=== PATIENT | female | born 1990 | race Caucasian/White ===

== ENCOUNTER 2016-11-14 08:49 | Emergency (ER) | payer OTHER, MEDICAID ==
--- NOTE | 2016-11-14 09:35 | EDPHY ---
H & P Stated Complaint: sore throat runny nose cough for 5 days HPI/ROS: Chief complaint: Cold symptoms History of present illness: 26-year-old female presents to the emergency department for cold symptoms. Patient reports the onset of symptoms over the last 5 days. She reports tactile fevers, runny nose, nasal congestion, sore throat and cough. She denies precipitating factors. Denies alleviating factors. Denies other associated signs or symptoms including no trouble breathing and no rash. - Personal History LMP (Females 10-55): Irregular Current Tetanus/Diphtheria Vaccine: Yes Current Tetanus Diphtheria and Acellular Pertussis (TDAP): Yes Tetanus Vaccine Date: < 10 years - Medical/Surgical History Hx Asthma: No Hx Chronic Respiratory Disease: No Hx Diabetes: No Hx Cardiac Disease: No Hx Renal Disease: No Hx Cirrhosis: No Hx Alcoholism: No Hx HIV/AIDS: No Hx Splenectomy or Spleen Trauma: No Other PMH: depression/anxiety - Social History Smoking Status: Current some day smoker - Physical Exam Exam: General Appearance: Alert, nontoxic. Eyes: Pupils equal and round no injection. ENT: Tympanic membranes, external auditory canals, external ears and surrounding soft tissue including over the mastoids are unremarkable. Nasopharynx is not injected. There is no rhinorrhea. Oropharynx is injected. There is mild edema. There is no exudate. There is no asymmetry. The uvula is midline. No elevation of the tongue. There is no hoarseness, no drooling, no trismus, no stridor. Respiratory: Chest is nontender, lungs are clear to auscultation. Cardiac: regular rate and rhythm. Musculoskeletal: Neck is supple and nontender. Extremities have full range of motion and are nontender. Skin: No rashes or lesions. Neurological: Alert and oriented x4. No meningismus. Constitutional: Initial Vital Signs Temperature (C) 36.6 C 11/14/16 08:51 Heart Rate 108 H 11/14/16 08:51 Respiratory Rate 16 11/14/16 08:51 Blood Pressure 136/90 H 11/14/16 08:51 O2 Sat (%) 97 11/14/16 08:51 O2 Delivery Mode Room Air Allergies/Adverse Reactions: iodine [Iodine] Allergy (Intermediate, Verified 04/28/16 11:17) Home Medications: Medication Instructions Recorded Busjonn (*) 04/28/16 Lexapro 04/28/16 Codeine Phosphate/Guaifenesin 10 ml PO Q6 #120 ml 11/14/16 [Codeine-Guaifen 10-100 mg/5 ml] Medical Decision Making ED Course/Re-evaluation: Patient seen under the supervision of my secondary supervising physician Dr. Komal Shin. Patient presents to the emergency department for cold symptoms. Patient is nontoxic. Afebrile and vital signs are stable. Physical exam is consistent with a pharyngitis. Strep swab is negative. I do not believe antibiotics are warranted at this time. Patient will be discharged home. Home care is discussed. Return precautions are given. Patient voiced understanding and agreement with plan. Differential Diagnosis: Included but not limited to pharyngitis, strep pharyngitis, tonsillitis, abscess formation, bronchitis, pneumonia, influenza - Data Points Laboratory Results: 11/14/16 11/14/16 Unknown 09:05 Group A Strep Screen NEGATIVE (NEGATIVE) Group A Strep DNA NEGATIVE (NEGATIVE) Departure - Departure Disposition: Home, Routine, Self-Care Clinical Impression: Acute pharyngitis Qualifiers: Pharyngitis/tonsillitis etiology: unspecified etiology Qualified Code(s): J02.9 - Acute pharyngitis, unspecified Condition: Good Instructions: Pharyngitis (ED) Additional Instructions: Follow-up with your primary care doctor for recheck Use ibuprofen 600 mg 3 times a day for the next 2-3 days If symptoms worsen or new symptoms develop return to the emergency room for recheck Referrals: UNKNOWN,BECKY [Other] - As per Instructions [facility],. [Clinic] - As per Instructions Stand Alone Forms: Work Excuse Prescriptions: Codeine Phosphate/Guaifenesin [Codeine-Guaifen 10-100 mg/5 ml] 10 ml PO Q6 #120 ml
[2016-11-14 10:22] VITALS: BP 143/108; PULSE 76; RESP 18; TEMP 98.1; O2SAT 96
== END 2016-11-14 10:21 | disposition home or self-care (01) ==
DX: J02.9 Acute pharyngitis, unspecified (principal); F17.200 Nicotine dependence, unspecified, uncomplicated

== ENCOUNTER 2017-01-23 18:38 | Emergency (ER) | payer OTHER, MEDICAID ==
[2017-01-23 19:10] VITALS: BP 113/76; PULSE 74; RESP 16; TEMP 98.2; O2SAT 98
--- NOTE | 2017-01-23 20:19 | EDPHY ---
H & P Stated Complaint: rash/possible ringworm to l neck x 2 days Source: Patient Exam Limitations: No limitations - Personal History LMP (Females 10-55): Unknown Current Tetanus/Diphtheria Vaccine: Yes Tetanus Vaccine Date: < 10 years - Medical/Surgical History Hx Asthma: No Hx Chronic Respiratory Disease: No Hx Diabetes: No Hx Cardiac Disease: No Hx Renal Disease: No Hx Cirrhosis: No Hx Alcoholism: No Hx HIV/AIDS: No Hx Splenectomy or Spleen Trauma: No Other PMH: depression/anxiety - Social History Smoking Status: Current some day smoker HPI/ROS: CHIEF COMPLAINT: Rash, possible ringworm HISTORY OF PRESENT ILLNESS: Patient complains of 2 days history of rash on the left side of her neck. She is worried that is ringworm as she has a family member and cat with ringworm. She has no systemic complaints. The rash is minimally pruritic. No fever or chills. No involvement of the face. No modifying factors. No other associated complaints. She has not attempted to treat this with anything yet. REVIEW OF SYSTEMS: Ten systems reviewed and are negative unless otherwise noted in the HPI PAST MEDICAL HISTORY: Denies any medical history SOCIAL HISTORY: Nonsmoker. Lives here in [place]. Recently traveled to [place] FAMILY HISTORY: Noncontributory EXAMINATION General Appearance: Alert, no distress Head: normocephalic, atraumatic Eyes: Pupils equal and round, no conjunctival pallor or injection ENT, Mouth: Mucous membranes moist. Airway patent Neck: Supple nontender. There is a small, less than 2 cm area of tinea corporis the left side of the neck. No surrounding erythema, fluctuance or induration. Respiratory: No retractions or distress Cardiovascular: Regular rate. Pulses intact distally symmetrically Neurological: A&O, nonfocal, normal gait Skin: Warm and dry. Tinea corporis to the left side of the neck as described above. No petechiae or purpura. Extremities: Nontender, no pedal edema Psychiatric: Mood and affect normal DIFFERENTIAL DIAGNOSES: Including but not limited to tinea corpora, fungal infection, rash, dermatitis MDM: 8:15 p.m. Tinea corporis till left side of the neck. No involvement of the face. No involvement of the genitalia feet. Topical cream/ointment will be prescribed. Apply as discussed. Follow up with primary care physician. Return here for any worsening symptoms. Follow up with design verification engineer for the son who was not evaluated here as a patient. SUPERVISION: This patient was independently evaluated without direct examination by the attending physician. Case was discussed with attending physician. (Rakan Rushing) Constitutional: Initial Vital Signs Temperature (C) 98.2 F 01/23/17 19:07 Heart Rate 74 01/23/17 19:07 Respiratory Rate 16 01/23/17 19:07 Blood Pressure 113/76 01/23/17 19:07 O2 Sat (%) 98 01/23/17 19:07 O2 Delivery Mode Room Air Allergies/Adverse Reactions: iodine [Iodine] Allergy (Intermediate, Verified 01/23/17 19:08) Home Medications: Medication Instructions Recorded Buspar (*) 04/28/16 Lexapro 04/28/16 Clotrimazole 1% [Lotrimin 1%] 1 thiago TP BID #1 tube 01/23/17 Medical Decision Making ED Course/Re-evaluation: I did not see this patient while she was in the emergency department. However her care was discussed with the PA while the patient was in the department. I agree with treatment plan and management (Sanchez Zamora) Departure - Departure Disposition: Home, Routine, Self-Care Clinical Impression: Tinea corporis Condition: Good Instructions: Tinea Corporis (ED) Additional Instructions: 1. Ointment as prescribed for 10-14 days 2. Follow up primary care physician Referrals: NONE *PRIMARY CARE P,. [Primary Care Provider] - As per Instructions Carla Woodall MD [Medical Doctor] - As per Instructions Prescriptions: Clotrimazole 1% [Lotrimin 1%] 1 thiago TP BID #1 tube
== END 2017-01-23 20:27 | disposition home or self-care (01) ==
DX: B35.4 Tinea corporis (principal); F17.200 Nicotine dependence, unspecified, uncomplicated

== ENCOUNTER 2017-07-22 08:13 | Emergency (ER) | payer OTHER, MEDICAID ==
[2017-07-22 08:23] VITALS: BP 139/96; PULSE 92; RESP 18; TEMP 98.4; O2SAT 98
--- NOTE | 2017-07-22 08:55 | EDPHY ---
H & P Time Seen by Provider: 07/22/17 08:33 HPI/ROS: CHIEF COMPLAINT: Sore throat, sinus pressure, cough HISTORY OF PRESENT ILLNESS: Patient is a 26-year-old female presents emergency department multiple complaints. She states that 1 week ago she developed bilateral ear pain. Her right ear is worse than the left. She has had worsening sore throat. This is primarily on the right side. She also notes right anterior lymphadenopathy on her neck. She has had intermittent sweats. She has not measured her temperature. She denies nausea or vomiting. No abdominal pain. Patient has a mild cough but this is improving. She has no shortness of breath. No leg pain or swelling. REVIEW OF SYSTEMS: My complete review of systems is negative except as mentioned in the HPI. Past Medical/Surgical History: Includes depression, anxiety Past surgical history: Noncontributory Social history: The patient smokes. Smoking Status: Current some day smoker Physical Exam: Vitals noted GENERAL: Well-appearing, in no acute distress, alert. HEENT: Eyes normal to inspection, no signs of dehydration. Patient's TMs are negative bilaterally. Patient has an erythematous pharynx was small white lesions. The uvula is midline. There is no asymmetry or mass visible. Mild maxillary sinus tenderness palpation NECK: No thyromegaly, right anterior lymphadenopathy, supple. RESPIRATORY: Clear to auscultation bilaterally, no rales, rhonchi or wheezing. CVS: Regular rate and rhythm, no rubs, murmurs, or gallops. ABDOMEN: Soft, nontender, nondistended, no organomegaly. BACK: Normal to inspection, no CVA tenderness. SKIN: Normal color, no rash, warm, dry. No pallor. EXTREMITIES: No pedal edema, no calf tenderness, no Homans sign or cords, no joint swelling. NEURO/PSYCH: Alert and oriented x3, normal mood and affect, normal motor sensory exam. No obvious cranial nerve deficit. Constitutional: Initial Vital Signs Temperature (C) 36.9 C 07/22/17 08:17 Heart Rate 92 07/22/17 08:17 Respiratory Rate 18 07/22/17 08:17 Blood Pressure 139/96 H 07/22/17 08:17 O2 Sat (%) 98 07/22/17 08:17 O2 Delivery Mode Room Air Allergies/Adverse Reactions: No Known Allergies Allergy (Unverified 07/22/17 08:58) Home Medications: Medication Instructions Recorded Amoxicillin/Clavulanate Pot 875 mg PO BID 10 Days tab 07/22/17 [Augmentin 875 mg tab] Escitalopram Oxalate [Lexapro] 10 mg PO 07/22/17 QUEtiapine FUMARATE [Seroquel 25 25 mg PO DAILY 07/22/17 mg (*)] busPIRone [Buspar (*)] 5 mg PO 07/22/17 Medical Decision Making ED Course/Re-evaluation: In the emergency department I discussed possible etiologies with the patient. I answered all her questions. Patient will be treated with Augmentin. This will cover for both pharyngitis as well as sinusitis. I explained this to the patient. I answered all her questions. She is given warnings prior to leaving. Differential Diagnosis: My differential includes but is not limited to sinusitis, pharyngitis, strep pharyngitis, peritonsillar abscess, retropharyngeal abscess, mononucleosis, bacteremia, sepsis Departure - Departure Disposition: Home, Routine, Self-Care Clinical Impression: Sinusitis Qualifiers: Sinusitis location: maxillary Chronicity: acute Recurrence: non-recurrent Qualified Code(s): J01.00 - Acute maxillary sinusitis, unspecified Pharyngitis Qualifiers: Pharyngitis/tonsillitis etiology: unspecified etiology Qualified Code(s): J02.9 - Acute pharyngitis, unspecified Condition: Good Instructions: Pharyngitis (ED), Sinusitis (ED) Additional Instructions: Take your entire course of antibiotics. Return with increasing pain, visual change, persistent fever, repeated vomiting or any other concerns. Take Claritin-D or another decongestant as directed by the package with your antibiotics Referrals: Angélica Lucero, [Doctor of Osteopathy] - 5-7 days, call for appt. Stand Alone Forms: Work Excuse Prescriptions: Amoxicillin/Clavulanate Pot [Augmentin 875 mg tab] 875 mg PO BID 10 Days tab
== END 2017-07-22 09:15 | disposition home or self-care (01) ==
DX: J02.9 Acute pharyngitis, unspecified (principal); J01.00 Acute maxillary sinusitis, unspecified; F17.200 Nicotine dependence, unspecified, uncomplicated

== ENCOUNTER 2017-10-07 08:48 | Emergency (ER) | payer OTHER, MEDICAID ==
--- NOTE | 2017-10-07 09:02 | EDPHY ---
H & P Time Seen by Provider: 10/07/17 08:58 HPI/ROS: CHIEF COMPLAINT: "I think I have strep" HISTORY OF PRESENT ILLNESS: 26-year-old female history of recurrent strep pharyngitis complaining of 24 hr of sore throat, white tonsillar exudate. No URI symptoms. No cough. No chest pain. No adenopathy. No nuchal rigidity. No headache. No fever or chills. No change in voice. No urinary abnormality. PRIMARY CARE PROVIDER: REVIEW OF SYSTEMS: A ten point review of systems was performed and is negative with the exception of the items mentioned in the HPI PAST MEDICAL & SURGICAL HISTORY: Recurrent strep pharyngitis SOCIAL HISTORY:Nonsmoker PHYSICAL EXAM (Prior to examination, patient consented to physical exam, hands were washed and my usual and customary physical exam procedures followed) 1) GENERAL: Well-developed, well-nourished, alert and oriented. Appears to be in no acute distress. 2) HEAD: Normocephalic, atraumatic 3) HEENT: Pupils equal, round, reactive to light bilaterally. Sclera anicteric. Oropharynx: Bilaterally enlarged, exudate of, symmetrical tonsils. No pointing of the uvula. No trismus or drooling. No hot potato voice. Ears bilaterally with normal tympanic membranes. 4) NECK: Full range of motion, no meningeal signs. No adenopathy 5) LUNGS: Clear auscultation bilaterally, no wheezes, no rhonchi, no retractions. 6) HEART: Regular rate and rhythm, no murmur, no heave, no gallop. 7) ABDOMEN: No guarding, no rebound, no focal tenderness, negative McBurney's, negative Lombardi's, negative Rovsing's, negative peritoneal sign, 8) MUSCULOSKELETAL: Moving all extremities, no focal areas of tenderness, no obvious trauma. No peripheral edema or discoloration. 9) BACK: No CVA tenderness 10) SKIN: No rash, no petechiae. 11) Psychiatric: Patient is oriented X 3, there is no agitation. DIFFERENTIAL DIAGNOSIS: In no particular order including but not limited to strep pharyngitis, peritonsillar abscess, mononucleosis, epiglottitis Smoking Status: Current some day smoker Constitutional: Initial Vital Signs Temperature (C) 37.1 C 10/07/17 08:51 Heart Rate 71 10/07/17 08:51 Respiratory Rate 16 10/07/17 08:51 Blood Pressure 132/84 H 10/07/17 08:51 O2 Sat (%) 96 10/07/17 08:51 O2 Delivery Mode Room Air Allergies/Adverse Reactions: No Known Allergies Allergy (Unverified 07/22/17 08:58) Home Medications: Medication Instructions Recorded Escitalopram Oxalate [Lexapro] 10 mg PO 07/22/17 QUEtiapine FUMARATE [Seroquel 25 25 mg PO DAILY 07/22/17 mg (*)] busPIRone [Buspar (*)] 5 mg PO 07/22/17 Penicillin V Potassium [Pen Vk] 500 mg PO Q6 10 Days tab 10/07/17 MDM/Departure - [facility] ED Course/Re-evaluation: High clinical suspicion for strep pharyngitis. Doubt peritonsillar abscess, doubt epiglottitis. Will treat empirically. She feels comfortable with this plan. Given usual and customary pharyngitis precautions instructions. Care of patient under supervision of secondary supervising physician Dr Barakat . - Depart Disposition: Home, Routine, Self-Care Clinical Impression: Strep pharyngitis Condition: Good Instructions: Strep Throat (ED) Additional Instructions: Return to the ER immediately if you cannot swallow, have drooling, fevers, neck stiffness, cannot open your jaw, or any other symptoms that concern you. Stand Alone Forms: Work Excuse Prescriptions: Penicillin V Potassium [Pen Vk] 500 mg PO Q6 10 Days tab Referrals: RACHEL BRYANT [Other] - 1-2 days without fail
[2017-10-07 09:11] VITALS: BP 140/90
== END 2017-10-07 09:11 | disposition home or self-care (01) ==
DX: J02.0 Streptococcal pharyngitis (principal); F17.200 Nicotine dependence, unspecified, uncomplicated